=== PATIENT | female | born 1965 | race Caucasian/White ===

== ENCOUNTER 2023-02-17 09:17 | Emergency (ER) | payer SELFPAY ==
[~2023-02-17] VITALS: Ht 165.1 cm; Wt 78.6 kg
[2023-02-17 09:19] VITALS: TEMP 97.7
[2023-02-17] MEDS ORDERED: ROXICODONE 55 MG/TAB PO (11:04)
[2023-02-17 12:00] VITALS: BP 102/61; PULSE 57
== END 2023-02-17 12:03 | disposition home or self-care (01) ==
LOC: COL.ER 09:17
DX: S42.202A Unspecified fracture of upper end of left humerus, initial encounter for closed fracture (principal); S00.31XA Abrasion of nose, initial encounter; W01.0XXA Fall on same level from slipping, tripping and stumbling without subsequent striking against object, initial encounter; Y93.89 Activity, other specified; Y99.0 Civilian activity done for income or pay
CPT/HCPCS: J2270